=== PATIENT | female | born 1995 | race Asian ===

== ENCOUNTER 2018-07-25 23:00 | Emergency (ER) | payer MEDICAID ==
--- NOTE | 2018-07-25 23:24 | ED ---
Headache - HPI Summary HPI Summary: The pt is a 22 y/o F presenting to the ED with a chief complaint of headache onset 2 days ago located in her eyes. She recently went to [facility] and stayed in popular areas and in hotels. The pt reports ocular pain, neck stiffness, rash all over, and mild abd pain. The pt denies photophobia, eye redness or discharge , fevers, shakes, chills, nasal discharge, sore throat, cough, trouble urinating , blood in urine, troubles with bowels, or any medical problems. - History Of Current Complaint Chief Complaint: EDHeadache Stated Complaint: RASH, HEADACHE Time Seen by Provider: 07/25/18 23:14 Hx Obtained From: Patient Onset/Duration: Gradual Onset, Started days ago, Still Present Initially Headache Was: Mild Currently Pain Is: Mild Timing: Constant, Days Character: Pressure Location of Headache: Frontal Aggravating Factor: Nothing Allevating Factors: Nothing Associated Signs And Symptoms: Neck Stiffness, Other (Noted In Comments) - rash , mild abd pain - Allergies/Home Medications Allergies/Adverse Reactions: Allergies Allergy/AdvReac Type Severity Reaction Status Date / Time No Known Allergies Allergy Verified 07/25/18 23:06 Home Medications: Home Medications NK [No Home Medications Reported] 07/25/18 [History Confirmed 07/25/18] PMH/Surg Hx/FS Hx/Imm Hx Previously Healthy: Yes Endocrine/Hematology History: Denies: Hx Diabetes Cardiovascular History: Denies: Hx Hypertension Infectious Disease History: No Infectious Disease History: Reports: Traveled Outside the [place] in Last 30 Days - Family History Known Family History: Negative: Hypertension, Renal Disease - Social History Occupation: Student Lives: Dormitory/Roommates Review of Systems Negative: Fever, Chills Positive: Other - pain. Negative: Photophobia, Drainage, Erythema Negative: Sore Throat, Nasal Discharge Negative: Cough Positive: no symptoms reported. Negative: hematuria Positive: Other - stiff neck. Negative: Decreased ROM Positive: Rash - all over Positive: Headache All Other Systems Reviewed And Are Negative: Yes Physical Exam - Summary Physical Exam Summary: Appearance: Well-appearing, Well-nourished, lying in bed comfortably Skin: diffuse rash on trunk, Upper extremities, and proximal thighs, erythematous, maculopapular lesions without coalescence, lesions larisa and are not petechial. Eyes: sclera anicteric, no conjunctival pallor ENT: mucous membranes moist, pharynx appears normal Neck: Supple, nontender, no nuchal rigidity, no meningismus Respiratory: Clear to auscultation, no signs of respiratory distress Cardiovascular: Normal S1, S2. No murmurs. Normal distal pulses in tibial and radial bilaterally. Abdomen: Soft, nontender, normal active bowel sounds present Musculoskeletal: Normal, Strength/ROM Intact Neurological: A&Ox3, awake and alert, mentation is normal, speech is fluent and appropriate Psychiatric: affect is normal, does not appear anxious or depressed Triage Information Reviewed: Yes Vital Signs On Initial Exam: Initial Vitals Temp Pulse Resp BP Pulse Ox 98.1 F 104 16 106/84 98 07/25/18 23:02 07/25/18 23:02 07/25/18 23:02 07/25/18 23:02 07/25/18 23:02 Vital Signs Reviewed: Yes Diagnostics - Vital Signs Vital Signs Temp Pulse Resp BP Pulse Ox 07/25/18 23:02 98.1 F 104 16 106/84 98 - Laboratory Result Diagrams: 07/25/18 23:38 07/25/18 23:38 Lab Statement: Any lab studies that have been ordered have been reviewed, and results considered in the medical decision making process. Headache Course/Dx - Course Course Of Treatment: The pt is a 22 y/o F presenting to the ED with a chief complaint of headache onset 2 days ago located in her eyes. She recently went to [facility] and stayed in popular areas and in hotels. The pt reports ocular pain, neck stiffness, rash all over, and mild abd pain. The pt denies photophobia, eye redness or discharge, fevers, shakes, chills, nasal discharge, sore throat, cough, trouble urinating, blood in urine, troubles with bowels, or any medical problems. Bloodwork/UA obtained. No significant results, the pt will be discharged home with instructions to follow up at the [facility], and the pt is agreeable with this plan. - Diagnoses Provider Diagnoses: Viral exanthem Discharge - Sign-Out/Discharge Documenting (check all that apply): Patient Departure - Discharge Plan Condition: Stable Disposition: HOME Patient Education Materials: Viral Syndrome (ED) Referrals: [facility] [Outside] Additional Instructions: Your blood work did not show signs of any serious illness or infection. I expect your symptoms to stay the same over the next few days, then gradually improve. Sometimes a more serious illness takes time to evolve, so watch out for the signs listed later in these discharge instructions and get rechecked if you feel like you are getting worse. - Billing Disposition and Condition Condition: STABLE Disposition: Home - Attestation Statements Document Initiated by Nallelyibe: Yes Documenting Scribe: Sierra Larsen Provider For Whom aSng is Documenting (Include Credential): Carlos Valladares MD. Scribe Attestation: ISierra, scribed for Carlos Valladares MD. on 07/26/18 at 0223. Scribe Documentation Reviewed: Yes Provider Attestation: The documentation as recorded by the Sierra evans accurately reflects the service I personally performed and the decisions made by me, Carlos Valladares MD. Status of Scribe Document: Viewed
[2018-07-25 23:48] LABS: ABS Basophils 0 10^3/ul (0-0.2); ABS Eosinophils 0 10^3/ul (0-0.6); ABS Lymphocytes 0.8 10^3/ul (1.0-4.8); ABS Monocytes 0.6 10^3/ul (0-0.8); ABS Neutrophils 1.5 10^3/ul (1.5-7.7); ABS Nucleated RBC 0 10^3/ul; Eosinophil % 0.8 %; Hematocrit 41 % (35-47); Hemoglobin 13.8 g/dl (12.0-16.0); Lymphocyte % 28.5 %; Mean Corpuscular HGB Conc 34 g/dl (31-36); Mean Corpuscular Hemoglobin 31 pg (27-31); Mean Corpuscular Volume 91 fL (80-97); Mean Platelet Volume 7.2 fL (7.4-10.4); Nucleated Red Blood Cells % 0.1; Platelet Count 260 10^3/ul (150-450); Red Blood Count 4.51 10^6/ul (4.00-5.40); Red Cell Distribution Width 12 % (10.5-15); White Blood Count 2.9 10^3/ul (3.5-10.8)
[2018-07-25 23:55] LABS: Urine Appearance Cloudy; Urine Bacteria Absent (Absent); Urine Bilirubin Negative (Negative); Urine Blood 1+ (Negative); Urine Color Amber; Urine Glucose Negative (Negative); Urine Ketones 2+ (Negative); Urine Nitrite Negative (Negative); Urine Protein Negative (Negative); Urine Red Blood Cell 1+(3-5/hpf) (Absent); Urine Urobilinogen Negative (Negative); Urine White Blood Cell Trace(0-5/hpf) (Absent)
[2018-07-26 00:03] LABS: ALT 10 U/L (7-52); AST 17 U/L (13-39); Albumin 4.5 g/dL (3.2-5.2); Albumin/Globulin Ratio 1.4 (1-3); Alkaline Phosphatase 66 U/L (34-104); Anion Gap 8 mmol/L (2-11); BUN/Creatinine Ratio 20.6 (8-20); Blood Urea Nitrogen 14 mg/dL (6-24); CO2 Carbon Dioxide 25 mmol/L (22-32); Calcium 9.2 mg/dL (8.6-10.3); Chloride 105 mmol/L (101-111); EGFR Non-African American 110.3 (>60); Globulin 3.2 g/dL (2-4); Glucose 90 mg/dL (70-100); Potassium 3.7 mmol/L (3.5-5.0); Sodium 138 mmol/L (135-145); Total Protein 7.7 g/dL (6.4-8.9)
[2018-07-26 00:09] LABS: HCG Pregnancy < 0.60 mIU/mL
[2018-07-26 00:19] VITALS: BP 112/60
== END 2018-07-26 00:18 | disposition home or self-care (01) ==
LOC: ED 23:00
DX: B09 Unspecified viral infection characterized by skin and mucous membrane lesions (principal); M43.6 Torticollis; R51 Headache; R10.84 Generalized abdominal pain
CPT/HCPCS: 36415; 80053; 81003; 81015; 84702; 85025; 87086; 99282